=== PATIENT | female | born 1980 | race Caucasian/White ===

== ENCOUNTER 2017-05-16 19:52 | Emergency (ER) | payer BC, OTHER ==
[~2017-05-16] VITALS: Ht 167.6 cm; Wt 55.3 kg
--- NOTE | 2017-05-16 20:52 | NUR ---
64 YO FEMALE BB SELF, STATES "I HAD A MOMENT WHERE I FROZE AND COULDNT SPEAK/MOVE OR DO ANYTHING". PATIENT AMBULATED TO ER BED, SKIN WARM, AND DRY, RESP EVEN AND UNLABOERED. AWAITING ORDERS FROM PROVIDER
[2017-05-16 21:51] VITALS: BP 136/72
--- NOTE | 2017-05-16 21:52 | NUR ---
Patient discharged to home in stable condition. Written and verbal after care instructions given. Patient verbalizes understanding of instruction.IV removed. Catheter intact and site benign. Pressure and 4x4 applied to site. No bleeding noted. PT ambulatory with a steady gait
== END 2017-05-16 21:52 | disposition home or self-care (01) ==
LOC: ER 19:52
DX: F41.9 Anxiety disorder, unspecified (principal); Z90.89 Acquired absence of other organs; Z88.1 Allergy status to other antibiotic agents; Z88.0 Allergy status to penicillin
CPT/HCPCS: A4606; Z7610